=== PATIENT | female | born 1950 | race Caucasian/White ===

== ENCOUNTER 2020-02-01 23:55 | Inpatient (IN) | payer MEDICARE, BC ==
[~2020-02-01] VITALS: Ht 170.2 cm; Wt 80.7 kg
--- NOTE | 2020-02-02 00:10 | NUR ---
Patient brought in by ambulance, via stretcher from [facility]. AO x 3. Verbally responsive, and pleasant at this time. Calm and cooperative. Denies any suicidal/homicidal ideation. Complains of 7/10 pain on the lower back area. Does not complain of any other discomfort. Ambulatory with steady gait, able to walk to the bathroom and back. No issues with GI/. Appears to be continent to bladder at this time. Safety precautions in place, all belongings accounted for and placed in a bag. No contrabands at bedside. VS stable at this time. Side rails up x 2. Nursing vineyard supervisor notified that 1:1 is needed. Patient is on a 5150 hold for DTO. Kept monitored.
[2020-02-02] MEDS ORDERED: HYDROCODONE/APAP 10-325 MG TABLET PO ONE (00:15)
[2020-02-02] MEDS ORDERED: HYDROCODONE/APAP 10-325 MG TABLET ONE (00:16)
[2020-02-02 01:20] VITALS: BP 147/65
--- NOTE | 2020-02-02 01:20 | NUR ---
Pt. admitted to [facility], Room 329, under care of Dr. Payne/Triny PETIT Belongings list completed. Report Given to Lacy LYNCH. Transported patient via wheelchair in stable condition. Safety precautions maintained.
[2020-02-02 01:45] VITALS: BP 147/65
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
--- NOTE | 2020-02-02 06:30 | NUR ---
Patient slept comfortably after admission with 1:1 sitter at bedside, with no complaints of pain or discomfort. All nursing needs were met promptly and patient is warm, dry, and comfortable. All safety and fall precaution measures remain in place.
[2020-02-02 07:43] VITALS: BP 126/48
[2020-02-02] MEDS: QUETIAPINE FUMARATE 25 MG TABLET PO SCH ×2 (09:58→16:06)
[2020-02-02] MEDS: DULOXETINE 60 MG CAPSULE.DR PO SCH (09:58)
[2020-02-02] MEDS ORDERED: MAGNESIUM HYDROXIDE 30 ML LIQUID UDC PO PRN (11:45)
[2020-02-02] MEDS ORDERED: ONDANSETRON 4 MG/2 ML VIAL IV PRN (11:45)
[2020-02-02] MEDS: GABAPENTIN 100 MG CAPSULE PO SCH ×2 (12:20→16:06)
[2020-02-02 13:30] VITALS: BP 134/49
[2020-02-02] MEDS ORDERED: LORAZEPAM 2 MG/1 ML VIAL IM ONE (14:15)
[2020-02-02] MEDS ORDERED: OLANZAPINE 10 MG VIAL IM ONE (14:15)
[2020-02-02 14:20] VITALS: BP 140/79
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
--- NOTE | 2020-02-02 14:47 | NUR ---
Mental Health Social Work Note Patient was given her advisement regarding her 5150 with expiration time. She got extremely upset and agitated when her necklace was removed and does not understand safety precautions to prevent self-injury. She appears to have cognitive impairment and mood instability. Patient began screaming and crying and was inconsolable and not directable. Dr Reyes was called and ordered 5mg Zyprexa IM and Ativan 1 mg. Patient has been living at home. Placement will be evaluated with her who is caring and involved. Patient's mood needs to be stabilized. Dr Reyes will follow patient for her psychiatric stay and evaluate medication and stabilize her mood. Patient is a poor historian and so will be contacted. Anastasiya HERNANDEZ will be doing psychosocial assessment on patient.
[2020-02-02 15:34] LABS: *BILIRUBIN,URIN NEGATIVE (NEGATIVE); *BLOOD, URINE NEGATIVE (NEGATIVE); *CLARITY,URINE SLIGHTLY CLOUDY (CLEAR); *COLOR,URINE YELLOW (YELLOW); *KETONES,URINE NEGATIVE (NEGATIVE); *UROBILINOGEN,URINE 0.2 E.U./dl (NORMAL); LEUKOCYTE ESTERASE ,URINE 1+ (NEGATIVE); NITRITE, URINE NEGATIVE (NEGATIVE); UGLUCOSE NEGATIVE (NEGATIVE)
[2020-02-02 15:41] LABS: BACTERIA,URINE MODERATE /HPF (NONE SEEN); SQUAMOUS EPITHELIAL CELL,UR MANY /HPF (NONE SEEN)
--- NOTE | 2020-02-02 16:11 | NUR ---
11:50am: SW completed patient's psychosocial assessment by meeting with the patient to gather some information, and also speaking with patient's David and gathering additional information from him. SW also obtained a copy of patient's Health Care Directive and placed it in patient's chart.
[2020-02-02] MEDS ORDERED: GABAPENTIN 100 MG CAPSULE PO SCH (17:00)
[2020-02-02 19:58] VITALS: BP 134/67
[2020-02-02] MEDS: DOCUSATE SODIUM 100 MG CAPSULE PO SCH (20:20)
[2020-02-02] MEDS: ATORVASTATIN 40 MG TABLET PO SCH (20:33)
[2020-02-02] MEDS: HYDROCODONE/APAP 10-325 MG TABLET PO PRN (20:37)
[2020-02-02] MEDS ORDERED: DONEPEZIL 10 MG TABLET PO SCH (21:00)
[2020-02-02] MEDS: QUETIAPINE FUMARATE 100 MG TABLET PO SCH (21:03)
[2020-02-03 06:29] LABS: BASOPHILS % (AUTO) 0.5 % (0.0-2.0); EOSINOPHILS # (AUTO) 0.1 K/uL (0.0-0.7); EOSINOPHILS % (AUTO) 1.6 % (0.0-7.0); HEMATOCRIT 36.7 % (31.2-41.9); HEMOGLOBIN 12.3 g/dL (10.9-14.3); LYMPHOCYTES # (AUTO) 2.1 K/uL (20.0-40.0); LYMPHOCYTES % (AUTO) 39.8 % (20.5-51.5); MEAN CORPUSCULAR HEMOGLOBIN 31.9 uug (24.7-32.8); MEAN CORPUSCULAR HGB CONC 34 g/dL (32.3-35.6); MONOCYTES # (AUTO) 0.4 K/uL (2.0-10.0); NEUTROPHILS # (AUTO) 2.7 K/uL (1.8-8.9); NEUTROPHILS % (AUTO) 51.1 % (38.5-71.5); PLATELET COUNT (AUTO) 215 K/uL (179-408); RED BLOOD CELL COUNT(AUTO) 3.87 MIL/uL (3.63-4.92); WHITE BLOOD COUNT (AUTO) 5.4 K/uL (3.8-11.8)
--- NOTE | 2020-02-03 06:45 | NUR ---
slept 9 hours.
[2020-02-03 06:54] LABS: BILIRUBIN,DIRECT 0.1 mg/dL (0.0-0.2); BILIRUBIN,TOTAL 0.3 mg/dL (0.2-1.0); CREATININE 0.8 mg/dL (0.6-1.3); MAGNESIUM 1.9 mg/dL (1.8-2.4); PHOSPHOROUS 3.9 mg/dL (2.5-4.9); POTASSIUM 3.7 mmol/L (3.5-5.1); TOTAL PROTEIN, SERUM 6.1 g/dL (6.4-8.2)
[2020-02-03 06:55] LABS: THYROID STIMULATING HORMONE 1.311 mIU/mL (0.358-3.740)
[2020-02-03 07:30] VITALS: BP 144/50
[2020-02-03] MEDS: DONEPEZIL 10 MG TABLET PO SCH (08:23)
[2020-02-03] MEDS: LORAZEPAM 1 MG TABLET PO PRN ×3 (08:23→20:47)
[2020-02-03] MEDS: GABAPENTIN 100 MG CAPSULE PO SCH ×3 (08:23→16:52)
[2020-02-03] MEDS: CHOLECALCIFEROL 1,000 UNIT TABLET PO SCH (08:23)
[2020-02-03] MEDS: QUETIAPINE FUMARATE 25 MG TABLET PO SCH ×2 (08:23→16:53)
[2020-02-03] MEDS: DULOXETINE 60 MG CAPSULE.DR PO SCH (08:24)
[2020-02-03] MEDS: ASPIRIN 81 MG TAB.CHEW PO SCH (08:24)
[2020-02-03] MEDS: NIFEdipine XL 90 MG TABSR PO SCH (08:24)
[2020-02-03] MEDS: SPIRONOLACTONE 25 MG TABLET PO SCH (08:24)
[2020-02-03] MEDS ORDERED: NIFEDIPINE 90 MG PO SCH (09:00)
[2020-02-03] MEDS: CEphaleXIN 500 MG CAPSULE PO SCH ×3 (09:04→21:01)
[2020-02-03] MEDS: HYDROXYZINE PAMOATE 25 MG CAPSULE PO PRN ×3 (09:05→21:47)
[2020-02-03] MEDS: HYDROCODONE/APAP 10-325 MG TABLET PO PRN ×3 (09:05→21:47)
[2020-02-03 10:00] VITALS: BP 124/32
--- NOTE | 2020-02-03 10:59 | NUR ---
Received patient thrashing around in bed yelling and crying about being in pain. Medications given per order with little relief. Patient very difficult to distract or redirect. Multiple times , patient jumped out of bed and tried to leave the unit yelling " I want to go home". Continuing to reorient patient to situation and medicate for pain and anxiety. Patient walked around unit with assistance and was showered. Tolerated well. Monitoring closely for safety and AWOL risk.
--- NOTE | 2020-02-03 15:47 | NUR ---
Patient continues to c/o pain, but is much calmer. No longer yelling or trying to leave the unit. Patient was able to have a calm conversation on the phone with her . No behavior escalation at this time, and patient can hold a meaningful conversation with staff. Will continue to monitor for safety and monitoring for pain.
[2020-02-03] MEDS: DOCUSATE SODIUM 100 MG CAPSULE PO SCH (21:00)
[2020-02-03] MEDS: QUETIAPINE FUMARATE 100 MG TABLET PO SCH (21:01)
[2020-02-03] MEDS: ATORVASTATIN 40 MG TABLET PO SCH (21:01)
[2020-02-04] MEDS: ONDANSETRON ODT 4 MG TAB.RAPDIS SL PRN ×2 (00:29→19:27)
[2020-02-04] MEDS: ACETAMINOPHEN 325 MG TABLET PO PRN (01:29)
[2020-02-04] MEDS: CEphaleXIN 500 MG CAPSULE PO SCH ×4 (06:02→21:19)
--- NOTE | 2020-02-04 06:50 | NUR ---
Received Pt with up in bed yelling, screaming and crying over how much pain she was in. 08/03 chronic generalized pain controlled with Hominy 10/325 and Tylenol 650mg prn. Pt was given Ativan and later Vistaril 25mg to control her anxiety and lability. Pt is angry, irritable, and needy with narcotics, despite explanation given regarding medication safety and prescribed frequency and timing. Pt is manipulative and child-like, attempts to staff split. Pt remained upset and crying until she fell asleep. Verbally abusive and paranoid toward staff. Woke up intermittently yelling and crying, then went back to sleep. Zofran 4mg administered effectively for nausea. VS stable, will continue to monitor. 1:1 sitter remains presents at all times for safety.
--- NOTE | 2020-02-04 06:59 | NUR ---
Slept 4.30 hours.
[2020-02-04 07:30] VITALS: BP 97/50
[2020-02-04] MEDS: GABAPENTIN 100 MG CAPSULE PO SCH ×5 (08:22→17:21)
[2020-02-04] MEDS: DULOXETINE 60 MG CAPSULE.DR PO SCH (08:22)
[2020-02-04] MEDS: ASPIRIN 81 MG TAB.CHEW PO SCH (08:22)
[2020-02-04] MEDS: CHOLECALCIFEROL 1,000 UNIT TABLET PO SCH (08:22)
[2020-02-04] MEDS: DONEPEZIL 10 MG TABLET PO SCH (08:22)
[2020-02-04] MEDS: SPIRONOLACTONE 25 MG TABLET PO SCH (08:22)
[2020-02-04] MEDS: NIFEdipine XL 90 MG TABSR PO SCH (08:22)
[2020-02-04] MEDS: LORAZEPAM 1 MG TABLET PO PRN ×2 (08:23→19:27)
[2020-02-04] MEDS: QUETIAPINE FUMARATE 25 MG TABLET PO SCH ×3 (08:23→17:20)
--- NOTE | 2020-02-04 08:45 | NUR ---
GPS: RECEIVED PATIENT AOX1, CONFUSED, AND CRYING, PATIENT VEBALIZES THAT SHES IN PAIN, PATIENT SCREAMING AND SHOUTING, NEEDED REDIRECTION , PRN MEDICATION GIVEN, PATIENT TOOK MEDS, PATIENT STILL VERBALIZES PAIN EVEN WITH PAIN MEDICATION, WILL CONTINUE MONITOR,
[2020-02-04] MEDS ORDERED: LORAZEPAM 2 MG/1 ML VIAL IM ONE (09:15)
[2020-02-04] MEDS ORDERED: OLANZAPINE 10 MG VIAL IM ONE (09:15)
--- NOTE | 2020-02-04 09:27 | NUR ---
GPS: PATIENT CONTINUOUSLY SCREAMING, AND SHOUTING IN HER ROOM, UNABLE TO REDIRECT, CONFUSED AND VERY ANXIOUS , CALLED AND SPOKE WITH DR. ROMAN, SUDHA MEDICATION ORDERED VIA IM , MEDS GIVEN , PATIENT TOLERATED THE MEDICATION, WILL CONTINUE MONITOR
--- NOTE | 2020-02-04 13:56 | NUR ---
PATIENT ASLEEP IN HER ROOM, WITH 1:1 SITTER FOR SAFETY
[2020-02-04] MEDS: HYDROCODONE/APAP 10-325 MG TABLET PO PRN (19:28)
[2020-02-04] MEDS: DOCUSATE SODIUM 100 MG CAPSULE PO SCH (21:00)
[2020-02-04 21:01] VITALS: BP 128/53
[2020-02-04] MEDS: ATORVASTATIN 40 MG TABLET PO SCH (21:20)
[2020-02-04] MEDS: QUETIAPINE FUMARATE 100 MG TABLET PO SCH (21:20)
[2020-02-05] MEDS: ONDANSETRON ODT 4 MG TAB.RAPDIS SL PRN ×2 (01:27→22:42)
[2020-02-05] MEDS: LORAZEPAM 1 MG TABLET PO PRN ×2 (01:27→08:14)
[2020-02-05] MEDS: HYDROCODONE/APAP 10-325 MG TABLET PO PRN ×4 (01:43→22:43)
[2020-02-05] MEDS: CEphaleXIN 500 MG CAPSULE PO SCH ×3 (06:19→22:43)
--- NOTE | 2020-02-05 06:20 | NUR ---
Remains the same as previous shift-when awake, Pt screams, yells, and cries inconsolably. Pt had minor moments of calm, but when redirection was given, Pt resumes crying and screaming "Pain!" Pt is alert and oriented x2 with moments of forgetfulness. Remains needy and seeking of narcotic medications. [place] 10/325, Ativan 1mg, and Zofran 4mg administered x2 during the shift. VS stable, slept 7.5 hours.
--- NOTE | 2020-02-05 07:35 | NUR ---
GPS: received patient asleep om bed with 1:1 sitter by the bed side, VS stable denies pain at this time
[2020-02-05] MEDS: CHOLECALCIFEROL 1,000 UNIT TABLET PO SCH (08:13)
[2020-02-05] MEDS: DULOXETINE 60 MG CAPSULE.DR PO SCH (08:13)
[2020-02-05] MEDS: QUETIAPINE FUMARATE 25 MG TABLET PO SCH ×2 (08:13→17:34)
[2020-02-05] MEDS: SPIRONOLACTONE 25 MG TABLET PO SCH (08:13)
[2020-02-05] MEDS: ASPIRIN 81 MG TAB.CHEW PO SCH (08:14)
[2020-02-05] MEDS: GABAPENTIN 100 MG CAPSULE PO SCH ×3 (08:14→17:34)
[2020-02-05] MEDS: DONEPEZIL 10 MG TABLET PO SCH (08:19)
[2020-02-05] MEDS: NIFEdipine XL 90 MG TABSR PO SCH (08:48)
--- NOTE | 2020-02-05 08:58 | NUR ---
GPS: patient continuously crying and screaming, patient verbalizes pain, patient restless , anxious, , has a childlike behavior, patient still has 1:1 sitter for safety, redirect patient attention with other activity the patient refused, assisted to lay down in bed , prn meds for pain given as ordered, will continue monitor
[2020-02-05 09:32] VITALS: BP 115/58
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
[2020-02-05] MEDS ORDERED: OLANZAPINE 10 MG VIAL IM ONE (09:45)
[2020-02-05] MEDS ORDERED: LORAZEPAM 2 MG/1 ML VIAL IM ONE (09:45)
[2020-02-05] MEDS: HYDROXYZINE PAMOATE 25 MG CAPSULE PO PRN ×2 (12:33→20:21)
--- NOTE | 2020-02-05 14:37 | NUR ---
Social Work Family Contact: leather production worker contacted patient's David ([phone]) to gather more collateral. 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 David, provided more information to this remote mortgage underwriter such as primary doctor number ([phone]) and home health services that patient has recently started on ([phone]).
--- NOTE | 2020-02-05 14:39 | NUR ---
Social Work Initial Discharge Plan: Patient will return back home with patient's David ([phone]) who is the DPOA. Patient will return back home with home health services.
--- NOTE | 2020-02-05 14:40 | NUR ---
Social Work Individual Therapy: floor worker well service met with patient to provided individual therapy. Patient presents with labile mood. This designer writer was unable to have a meaningful conversation with the patient. Patient has been continuously crying and stated to this designer writer "to leave" and that she wants to go to her room. This designer writer will follow-up with patient.
--- NOTE | 2020-02-05 14:46 | NUR ---
Social Work Firearms Report: Egg Smeller completed and submitted a [employer] firearms report for 5250 grave disability certification. A copy of report has been placed in patient chart.
[2020-02-05 20:00] VITALS: BP 146/63
[2020-02-05] MEDS: QUETIAPINE FUMARATE 100 MG TABLET PO SCH (20:21)
[2020-02-05] MEDS: DOCUSATE SODIUM 100 MG CAPSULE PO SCH (20:21)
[2020-02-05] MEDS: ATORVASTATIN 40 MG TABLET PO SCH (20:22)
[2020-02-05] MEDS: ACETAMINOPHEN 325 MG TABLET PO PRN (20:22)
[2020-02-05] MEDS ORDERED: LORAZEPAM 1 MG TABLET PO PRN (23:30)
--- NOTE | 2020-02-06 05:51 | NUR ---
Received Pt at the nurse's station, screaming and crying over how much pain she was in. Pt had just been given narcotic pain medication from the previous shift, and was reminded and re-educated regarding safety, timing and frequency of the medication. Pt continued to scream and cry at he nurse's station despite directions to wait in her room for her nurse to address her concerns. Pt became verbally abusive toward this repairer typewriter and was disruptive toward the milieu. Pt was escorted back to her room by staff, and Pt became aggressive and combative, attempting to strike out. Pt yanked herself away and ran to her room, throwing herself on her bed and sliding to the floor, kicking and screaming, refusing to get off of the floor. Redirection and emotional support provided, but Pt still refused, stating she would not get up "until I get more medication." Pt becomes manipulative and gamey when limits are set. Pt became accusatory and threatening toward staff stating, "I'm going to sylvie you for breaking my back, you broke my back!" Pt was given Vistaril 25mg to control her anxiety and lability. [place] 10/325 administered for pain, but Pt continued to act out and and scream for more pain medication. MD wan,pain management consult ordered. Pt is angry, irritable, needy and seeking with narcotics, despite repeated explanations given regarding medication safety. Pt remained upset and crying until she fell asleep. Woke up intermittently yelling, then went back to sleep throughout the shift. VS stable.
[2020-02-06] MEDS: CEphaleXIN 500 MG CAPSULE PO SCH ×3 (06:38→22:00)
[2020-02-06 07:30] VITALS: BP 110/49
[2020-02-06] MEDS: GABAPENTIN 100 MG CAPSULE PO SCH ×3 (08:00→17:32)
[2020-02-06] MEDS: ASPIRIN 81 MG TAB.CHEW PO SCH (08:00)
[2020-02-06] MEDS: QUETIAPINE FUMARATE 25 MG TABLET PO SCH ×2 (08:00→17:32)
[2020-02-06] MEDS: CHOLECALCIFEROL 1,000 UNIT TABLET PO SCH (08:00)
[2020-02-06] MEDS: DONEPEZIL 10 MG TABLET PO SCH (08:00)
[2020-02-06] MEDS: SPIRONOLACTONE 25 MG TABLET PO SCH (08:03)
[2020-02-06] MEDS: NIFEdipine XL 90 MG TABSR PO SCH (08:03)
[2020-02-06] MEDS: DULOXETINE 60 MG CAPSULE.DR PO SCH (08:03)
[2020-02-06] MEDS: HYDROCODONE/APAP 10-325 MG TABLET PO PRN (08:42)
[2020-02-06] MEDS: ACETAMINOPHEN 325 MG TABLET PO PRN (11:51)
[2020-02-06] MEDS: HYDROXYZINE PAMOATE 25 MG CAPSULE PO PRN (11:51)
[2020-02-06] MEDS ORDERED: HALOPERIDOL LACTATE 5 MG/1 ML VIAL IM STA (13:12)
[2020-02-06] MEDS ORDERED: LORAZEPAM 2 MG/1 ML VIAL IM STA (13:12)
--- NOTE | 2020-02-06 13:47 | NUR ---
patient constantly yelling, screaming, and kicking stuff, redirected not effective, called dr escobar, with order to give patient Ativan and Haldol as ordered, administered, continue to monitor behavior
--- NOTE | 2020-02-06 15:25 | NUR ---
Social Work PC Hearing Notification: breast worker contacted patient's David, ([phone]) and notified patients probable cause of hearing today.
[2020-02-06 16:00] VITALS: BP 108/51
--- NOTE | 2020-02-06 18:19 | NUR ---
patient is resting in her bed, calm, comfortable, no distress noted
[2020-02-06 20:00] VITALS: BP 100/60
[2020-02-06] MEDS: DOCUSATE SODIUM 100 MG CAPSULE PO SCH (21:00)
[2020-02-06] MEDS: QUETIAPINE FUMARATE 100 MG TABLET PO SCH (21:00)
[2020-02-06] MEDS: ATORVASTATIN 40 MG TABLET PO SCH (21:00)
--- NOTE | 2020-02-06 23:00 | NUR ---
received to care, lying in bed, asleep, but easy to awaken. compliant with vital signs, but refused all medications, and would not talk to the psychiatrist, stating "leave me alone i want to sleep." as of 2299, she continues to sleep. no distress noted. will continue to monitor closely.
[2020-02-07] MEDS: CEphaleXIN 500 MG CAPSULE PO SCH ×4 (05:36→23:00)
[2020-02-07] MEDS: HYDROCODONE/APAP 10-325 MG TABLET PO PRN ×2 (05:39→11:50)
--- NOTE | 2020-02-07 06:00 | NUR ---
slept 9.75 hours. PRN norco was given at 0540 for 10/10 gen pain. remains asleep.
--- NOTE | 2020-02-07 07:15 | NUR ---
pt is nowe awake, yelling and screaming, that she is in severe pain. difficult to redirect. currently in room, talking to self. report given to oncoming shift.
[2020-02-07 08:00] VITALS: BP 147/54
[2020-02-07] MEDS: DULOXETINE 60 MG CAPSULE.DR PO SCH (08:04)
[2020-02-07] MEDS: GABAPENTIN 100 MG CAPSULE PO SCH ×3 (08:04→18:05)
[2020-02-07] MEDS: QUETIAPINE FUMARATE 25 MG TABLET PO SCH ×2 (08:04→16:39)
[2020-02-07] MEDS: DONEPEZIL 10 MG TABLET PO SCH (08:05)
[2020-02-07] MEDS: NIFEdipine XL 90 MG TABSR PO SCH (08:05)
[2020-02-07] MEDS: SPIRONOLACTONE 25 MG TABLET PO SCH (08:05)
[2020-02-07] MEDS: ASPIRIN 81 MG TAB.CHEW PO SCH (08:05)
[2020-02-07] MEDS: CHOLECALCIFEROL 1,000 UNIT TABLET PO SCH (08:05)
[2020-02-07] MEDS ORDERED: LORAZEPAM 2 MG/1 ML VIAL IM ONE (12:15)
[2020-02-07] MEDS ORDERED: HALOPERIDOL LACTATE 5 MG/1 ML VIAL IM ONE (12:15)
[2020-02-07 16:00] VITALS: BP 105/37
[2020-02-07 20:46] VITALS: BP 122/51
[2020-02-07] MEDS: ATORVASTATIN 40 MG TABLET PO SCH ×2 (21:00→23:00)
[2020-02-07] MEDS: QUETIAPINE FUMARATE 100 MG TABLET PO SCH ×2 (21:00→23:00)
[2020-02-07] MEDS: DOCUSATE SODIUM 100 MG CAPSULE PO SCH (21:00)
--- NOTE | 2020-02-07 22:00 | NUR ---
received to care, asleep. no distress noted. meds were held, for now. will continue to monitor closely.
--- NOTE | 2020-02-07 23:30 | NUR ---
pt woke up at 2300, yelling and screaming. bedtime medications were given, at that time. as of now, she appear s to be asleep. no distress noted. will continue to monitor closely.
[2020-02-08] MEDS: CEphaleXIN 500 MG CAPSULE PO SCH ×3 (06:24→21:18)
[2020-02-08] MEDS: HYDROCODONE/APAP 10-325 MG TABLET PO PRN ×2 (06:25→13:02)
--- NOTE | 2020-02-08 06:30 | NUR ---
slept 9.25 hours, total. continues to sleep. no distress noted.
[2020-02-08 07:30] VITALS: BP 155/68
[2020-02-08] MEDS: FLUVOXAMINE MALEATE 25 MG TABLET PO SCH ×3 (08:01→17:18)
[2020-02-08] MEDS: NIFEdipine XL 90 MG TABSR PO SCH (08:01)
[2020-02-08] MEDS: HYDROXYZINE PAMOATE 25 MG CAPSULE PO PRN ×2 (08:01→19:51)
[2020-02-08] MEDS: CHOLECALCIFEROL 1,000 UNIT TABLET PO SCH (08:01)
[2020-02-08] MEDS: QUETIAPINE FUMARATE 100 MG TABLET PO SCH ×3 (08:01→20:57)
[2020-02-08] MEDS: SPIRONOLACTONE 25 MG TABLET PO SCH (08:02)
[2020-02-08] MEDS: GABAPENTIN 100 MG CAPSULE PO SCH ×3 (08:02→17:18)
[2020-02-08] MEDS: DULOXETINE 60 MG CAPSULE.DR PO SCH (08:02)
[2020-02-08] MEDS: ASPIRIN 81 MG TAB.CHEW PO SCH (08:02)
[2020-02-08] MEDS: DONEPEZIL 10 MG TABLET PO SCH (08:02)
--- NOTE | 2020-02-08 12:25 | NUR ---
Patient woke up this am yelling, screaming and walking up and down the onofre c/o 'pain". Very difficult to calm down and patient acting irrational. Am medications given and patient continues to yell out off and on, jumping out of bed and barging out to the nurses station. Assisted to shower and continuing to medicate per order. Patient has mood swings and can be combative. Monitoring for safety of patient and staff. Also monitoring for behavior escalation.
[2020-02-08 16:16] VITALS: BP 105/52
[2020-02-08] MEDS: ONDANSETRON ODT 4 MG TAB.RAPDIS SL PRN (17:01)
--- NOTE | 2020-02-08 19:51 | NUR ---
RECEIVED PT AWAKE, ALERT AND ORIENTEDX3. PT IN NO ACUTE DISTRESS. PLEASANT WHEN APPROACHED. PT SHOWS AGITATION, CRYING AND RESTLESS. STATING SHE'S IN PAIN. GAVE VISTARIL 1950H. PT TOLERATED IT WELL. WILL CONTINUE TO MONITOR.
[2020-02-08 20:30] VITALS: BP 126/95
[2020-02-08] MEDS: DOCUSATE SODIUM 100 MG CAPSULE PO SCH (20:55)
[2020-02-08] MEDS: ATORVASTATIN 40 MG TABLET PO SCH (20:56)
[2020-02-09] MEDS: HYDROCODONE/APAP 10-325 MG TABLET PO PRN ×4 (02:44→23:30)
[2020-02-09] MEDS: CEphaleXIN 500 MG CAPSULE PO SCH ×3 (05:59→21:25)
[2020-02-09] MEDS: ACETAMINOPHEN 325 MG TABLET PO PRN ×3 (06:22→20:55)
--- NOTE | 2020-02-09 06:36 | NUR ---
PT SLEPT 8 H. PT COOPERATIVE WITH CARE. PRESCRIBED MEDICATION GIVEN AND PT TOLERATED IT WELL. AT 0244H PT GIVEN NORCO BECAUSE OF 9/10 CHRONIC PAIN. PT TOLERATED IT WELL.AT 0622H PT GIVEN TYLENOL FOR CHRONIC PAIN. PT TOLERATED IT WELL. PT REDIRECTABLE. SAFETY AND COMFORT PROVIDED. WILL ENDORSE TO INCOMING NURSE FOR CONTINUITY OF CARE.
[2020-02-09 07:56] VITALS: BP 114/50
[2020-02-09] MEDS: DULOXETINE 60 MG CAPSULE.DR PO SCH (08:21)
[2020-02-09] MEDS: DONEPEZIL 10 MG TABLET PO SCH (08:21)
[2020-02-09] MEDS: NIFEdipine XL 90 MG TABSR PO SCH (08:21)
[2020-02-09] MEDS: SPIRONOLACTONE 25 MG TABLET PO SCH (08:21)
[2020-02-09] MEDS: FLUVOXAMINE MALEATE 25 MG TABLET PO SCH ×3 (08:21→17:24)
[2020-02-09] MEDS: ASPIRIN 81 MG TAB.CHEW PO SCH (08:21)
[2020-02-09] MEDS: CHOLECALCIFEROL 1,000 UNIT TABLET PO SCH (08:22)
[2020-02-09] MEDS: GABAPENTIN 100 MG CAPSULE PO SCH ×3 (08:22→17:24)
[2020-02-09] MEDS: QUETIAPINE FUMARATE 100 MG TABLET PO SCH ×3 (08:22→20:12)
--- NOTE | 2020-02-09 10:39 | NUR ---
Social Work Individual Therapy: out of school hours care worker met with patient to provided individual therapy. Patient presents with labile mood. This administrative underwriter was unable to have a meaningful conversation with the patient. Patient has been continuously crying and stated to this administrative underwriter "to leave". Patient continues to yell and scream "pain, pain". This administrative underwriter was unable to conversate with the patient.
--- NOTE | 2020-02-09 10:50 | NUR ---
Received patient this am , yelling, screaming and crying. Out of control. C/O " Pain". Medicated per orders. Patient difficult to redirect. Came to nursing station, yelling and demanding to speak with her . Patient became combative and made fits at the nurse and proceeded to lay down on the floor and was totally unreasonable. After a few minutes , patient got up and went to bed and is now sleeping. Monitoring patient for pain, safety and escalations in behavior. No acute distress noted at this time. MD is aware of the episode. Frequent rounding being done to ensure patient safety.
[2020-02-09] MEDS: HYDROXYZINE PAMOATE 25 MG CAPSULE PO PRN ×2 (14:10→20:13)
--- NOTE | 2020-02-09 14:36 | NUR ---
Social Work Family Contact: aircraft worker received a phone call from patient's David ([phone]) and wanted to know how the patient has been doing. This scientific writer discussed treatment plan and discharge plan with the David.
[2020-02-09 17:31] VITALS: BP 130/59
[2020-02-09] MEDS: DOCUSATE SODIUM 100 MG CAPSULE PO SCH (20:12)
[2020-02-09] MEDS: ATORVASTATIN 40 MG TABLET PO SCH (20:12)
[2020-02-09 20:19] VITALS: BP 136/55
[2020-02-10] MEDS: CEphaleXIN 500 MG CAPSULE PO SCH ×2 (05:59→12:52)
--- NOTE | 2020-02-10 06:21 | NUR ---
Patient slept about a total of 4.30 hours last night.
[2020-02-10] MEDS: HYDROXYZINE PAMOATE 25 MG CAPSULE PO PRN ×2 (06:29→13:34)
[2020-02-10] MEDS: HYDROCODONE/APAP 10-325 MG TABLET PO PRN ×2 (06:29→13:35)
[2020-02-10 07:30] VITALS: BP 155/54
[2020-02-10] MEDS ORDERED: LORAZEPAM 2 MG/1 ML VIAL IM ONE ×2 (07:30→14:30)
[2020-02-10] MEDS ORDERED: HALOPERIDOL LACTATE 5 MG/1 ML VIAL IM ONE (07:30)
[2020-02-10] MEDS: GABAPENTIN 100 MG CAPSULE PO SCH ×3 (08:21→17:00)
[2020-02-10] MEDS: ASPIRIN 81 MG TAB.CHEW PO SCH (08:21)
[2020-02-10] MEDS: QUETIAPINE FUMARATE 100 MG TABLET PO SCH ×3 (08:21→21:00)
[2020-02-10] MEDS: FLUVOXAMINE MALEATE 50 MG TABLET PO SCH ×3 (08:21→17:00)
[2020-02-10] MEDS: CHOLECALCIFEROL 1,000 UNIT TABLET PO SCH (08:21)
[2020-02-10] MEDS: DONEPEZIL 10 MG TABLET PO SCH (08:21)
[2020-02-10] MEDS: SPIRONOLACTONE 25 MG TABLET PO SCH (08:22)
[2020-02-10] MEDS: DULOXETINE 60 MG CAPSULE.DR PO SCH (08:22)
[2020-02-10] MEDS: NIFEdipine XL 90 MG TABSR PO SCH (08:22)
[2020-02-10] MEDS ORDERED: DULOXETINE 30 MG CAPSULE.DR PO SCH (09:00)
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
[2020-02-10] MEDS ORDERED: chlorproMAZINE 50 MG/2 ML AMPUL IM ONE (14:30)
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
[2020-02-10 20:33] VITALS: BP 150/56
[2020-02-10] MEDS: ATORVASTATIN 40 MG TABLET PO SCH (21:00)
[2020-02-10] MEDS: DOCUSATE SODIUM 100 MG CAPSULE PO SCH (21:00)
[2020-02-11] MEDS: HYDROXYZINE PAMOATE 25 MG CAPSULE PO PRN ×2 (05:51→19:04)
[2020-02-11] MEDS: HYDROCODONE/APAP 10-325 MG TABLET PO PRN ×2 (05:52→19:04)
[2020-02-11] MEDS ORDERED: chlorproMAZINE 25 MG TABLET PO SCH (09:00)
[2020-02-11] MEDS: NIFEdipine XL 90 MG TABSR PO SCH (09:00)
[2020-02-11] MEDS: SPIRONOLACTONE 25 MG TABLET PO SCH (09:10)
[2020-02-11] MEDS: DONEPEZIL 10 MG TABLET PO SCH (09:11)
[2020-02-11] MEDS: GABAPENTIN 100 MG CAPSULE PO SCH ×3 (09:12→17:00)
[2020-02-11] MEDS: ASPIRIN 81 MG TAB.CHEW PO SCH (09:12)
[2020-02-11] MEDS: FLUVOXAMINE MALEATE 50 MG TABLET PO SCH ×3 (09:12→17:00)
[2020-02-11] MEDS: CHOLECALCIFEROL 1,000 UNIT TABLET PO SCH (09:12)
[2020-02-11] MEDS: chlorproMAZINE 25 MG TABLET PO SCH ×3 (09:18→17:00)
[2020-02-11] MEDS ORDERED: chlorproMAZINE 50 MG/2 ML AMPUL IM ONE (11:30)
[2020-02-11] MEDS ORDERED: LORAZEPAM 2 MG/1 ML VIAL IM ONE (11:30)
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
--- NOTE | 2020-02-11 12:00 | NUR ---
Pt. calm now and is sleeping. Awakens easily to verbal stim. V/S stable. Resp. even and unlabored.
[2020-02-11 15:52] VITALS: BP_SYST 144; BP_SYST 98; BP_DIAS 46; BP_DIAS 50
--- NOTE | 2020-02-11 19:30 | NUR ---
RECEIVED PATIENT IN HER ROOM IN BED. SHE IS NOTED CRYING AND YELLING. SHE STATED "IT HURTS, IT HURTS" PATIENT WAS GIVEN NORCO AND VISTARIL AT APPROX 1915. PATIENT WAS REASSURED AND REDIRECTED. SHE IS NOTED HARD TO REDIRECT, MOOD IS IRRITABLE, AFFECT IS APATHETIC. PATIENT IS REASSURED FOR HIS SAFETY. SAFETY AND FALL PRECAUTION IN PLACE. WILL CONTINUE TO MONITOR.
--- NOTE | 2020-02-11 20:30 | NUR ---
PATIENT NOTED CALM AT THIS TIME. RESTING IN HER BED. V/S STABLE. SAFETY AND FALL PRECAUTION IN PLACE. WILL CONTINUE TO MONITOR.
[2020-02-11] MEDS: ATORVASTATIN 40 MG TABLET PO SCH (21:00)
[2020-02-11] MEDS: DOCUSATE SODIUM 100 MG CAPSULE PO SCH (21:00)
[2020-02-11 22:30] VITALS: BP 120/50
[2020-02-12 07:30] VITALS: BP 97/59
[2020-02-12] MEDS: FLUVOXAMINE MALEATE 50 MG TABLET PO SCH ×3 (08:41→17:12)
[2020-02-12] MEDS: DONEPEZIL 10 MG TABLET PO SCH (08:41)
[2020-02-12] MEDS: ASPIRIN 81 MG TAB.CHEW PO SCH (08:41)
[2020-02-12] MEDS: CHOLECALCIFEROL 1,000 UNIT TABLET PO SCH (08:41)
[2020-02-12] MEDS: chlorproMAZINE 25 MG TABLET PO SCH ×3 (08:42→17:12)
[2020-02-12] MEDS: SPIRONOLACTONE 25 MG TABLET PO SCH (08:43)
[2020-02-12] MEDS: NIFEdipine XL 90 MG TABSR PO SCH (08:45)
[2020-02-12] MEDS: GABAPENTIN 100 MG CAPSULE PO SCH ×3 (08:48→17:12)
[2020-02-12] MEDS: HYDROCODONE/APAP 10-325 MG TABLET PO PRN ×2 (08:53→18:39)
--- NOTE | 2020-02-12 09:00 | NUR ---
PATIENT IS SITTING UP ON THE CHAIR IN HER ROOM EATING BREAKFAST AND SUDDENLY STARTED SCREAMING THAT SHE IS IN PAIN WAS MEDICATED WITH NORCO ORDERED PATIENT ASSISTED BACK INTO BED MADE COMFORTABLE.
[2020-02-12] MEDS: HYDROXYZINE PAMOATE 25 MG CAPSULE PO PRN ×2 (09:17→18:39)
--- NOTE | 2020-02-12 09:20 | NUR ---
VERY IRRITABLE SCREAMING AT THE TOP OF HER VOICE VERY ANXIOUS UNABLE TO REDIRECT VISTARIL GIVEN FOR ANXIETY AT THIS TIME ORDERED WILL CONTINUE TO OBSERVE AND PROVIDE SAFE AND THERAPEUTIC ENVIRONMENT.
--- NOTE | 2020-02-12 09:23 | NUR ---
SCREAMING AND YELLING IS WORSE UNABLE TO REDIRECT CALLED AND SPOKE WITH DR BERRY AND HE STATED THAT HE IS NOT INFORMATION LEAD AND DOES NOT KNOW THE PATIENT STATED THAT HE IS OFF UNTIL NEXT WEEK AND DR AGUERO IS INFORMATION LEAD FOR HIM SO I CALLED DR AGUERO AND LEFT HIM A VOICE MESSAGE.
[2020-02-12] MEDS ORDERED: chlorproMAZINE 50 MG/2 ML AMPUL IM ONE (10:00)
[2020-02-12] MEDS ORDERED: LORAZEPAM 2 MG/1 ML VIAL IM ONE (10:00)
--- NOTE | 2020-02-12 10:09 | NUR ---
PATIENT MEDICATED WITH THORAZINE AND ATIVAN ORDERED MADE COMFORTABLE AND WILL CONTINUE TO OBSERVE.
--- NOTE | 2020-02-12 10:10 | NUR ---
DR AGUERO RETURNED CALL WITH NEW ORDERS AND NOTED
--- NOTE | 2020-02-12 18:40 | NUR ---
CONTINUES TO C/O PAIN WITH AGITATION AND RESTLESSNESS UNABLE TO REDIRECT MEDICATED WITH NORCO AND VISTARIL ORDERED MADE COMFORTABLE AND WILL CONTINUE TO OBSERVE.
[2020-02-12 20:48] VITALS: BP 102/50
[2020-02-12] MEDS: ATORVASTATIN 40 MG TABLET PO SCH ×2 (21:59→22:55)
[2020-02-12] MEDS: DOCUSATE SODIUM 100 MG CAPSULE PO SCH ×2 (21:59→22:55)
[2020-02-12] MEDS: ACETAMINOPHEN 325 MG TABLET PO PRN (22:55)
--- NOTE | 2020-02-12 23:30 | NUR ---
received to care, asleep, no distress noted. bedtime medications were held, initially, but were given at 2254, along with PRN tylenol, for lower back pain. as of 2329, she remains asleep. no distress noted. will continue to monitor closely.
--- NOTE | 2020-02-13 06:00 | NUR ---
slept 8.5 hours, total. continues to sleep. no distress noted.
[2020-02-13 07:30] VITALS: BP 126/49
[2020-02-13] MEDS: DONEPEZIL 10 MG TABLET PO SCH (08:40)
[2020-02-13] MEDS: CHOLECALCIFEROL 1,000 UNIT TABLET PO SCH (08:40)
[2020-02-13] MEDS: ASPIRIN 81 MG TAB.CHEW PO SCH (08:40)
[2020-02-13] MEDS: FLUVOXAMINE MALEATE 50 MG TABLET PO SCH ×3 (08:40→16:06)
[2020-02-13] MEDS: GABAPENTIN 100 MG CAPSULE PO SCH ×3 (08:40→16:06)
[2020-02-13] MEDS: HYDROXYZINE PAMOATE 25 MG CAPSULE PO PRN ×2 (08:49→15:23)
[2020-02-13] MEDS: chlorproMAZINE 25 MG TABLET PO SCH ×5 (08:50→23:30)
[2020-02-13] MEDS: SPIRONOLACTONE 25 MG TABLET PO SCH (08:50)
[2020-02-13] MEDS: HYDROCODONE/APAP 10-325 MG TABLET PO PRN ×2 (08:51→15:24)
[2020-02-13] MEDS: NIFEdipine XL 90 MG TABSR PO SCH (08:51)
--- NOTE | 2020-02-13 08:51 | NUR ---
RECEIVED PATIENT IN BED AWAKE YELLING AT THE TOP OF HER VOICE MEDICATED FOR PAIN AND RESTLESSNESS AT THIS TIME PATIENT MADE COMFORTABLE AND WILL CONTINUE TO OBSERVE.
--- NOTE | 2020-02-13 15:25 | NUR ---
SHE RESTED A LITTLE BIT BUT IS NOW SCREAMING AGAIN UNABLE TO REDIRECT MEDICATED WITH NORCO AND VISTARIL ORDERED MADE COMFORTABLE AND WILL CONTINUE TO OBSERVE.
[2020-02-13 16:12] VITALS: BP 119/50
[2020-02-13] MEDS ORDERED: chlorproMAZINE 25 MG TABLET PO SCH (17:00)
--- NOTE | 2020-02-13 17:15 | NUR ---
DR AGUERO HERE TO SEE PATIENT WITH NEW ORDERS AND NOTED
[2020-02-13 20:00] VITALS: BP 120/58
[2020-02-13] MEDS: ATORVASTATIN 40 MG TABLET PO SCH ×2 (21:59→23:30)
[2020-02-13] MEDS: DOCUSATE SODIUM 100 MG CAPSULE PO SCH ×2 (21:59→23:30)
--- NOTE | 2020-02-14 00:30 | NUR ---
received to care, asleep, no distress noted. bedtime medications were held, initially, but were given at 2330, when she got up, to use the restroom. as of 29, she remains asleep. no distress noted. will continue to monitor closely.
--- NOTE | 2020-02-14 06:00 | NUR ---
slept 9.75 hours, total. continues to sleep. no distress noted.
[2020-02-14 07:30] VITALS: BP 137/57
[2020-02-14] MEDS: CHOLECALCIFEROL 1,000 UNIT TABLET PO SCH (08:36)
[2020-02-14] MEDS: SPIRONOLACTONE 25 MG TABLET PO SCH (08:37)
[2020-02-14] MEDS: DONEPEZIL 10 MG TABLET PO SCH (08:37)
[2020-02-14] MEDS: FLUVOXAMINE MALEATE 50 MG TABLET PO SCH ×3 (08:37→17:25)
[2020-02-14] MEDS: chlorproMAZINE 25 MG TABLET PO SCH ×3 (08:37→20:48)
[2020-02-14] MEDS: ASPIRIN 81 MG TAB.CHEW PO SCH (08:37)
[2020-02-14] MEDS: GABAPENTIN 100 MG CAPSULE PO SCH ×3 (08:37→17:25)
[2020-02-14] MEDS: NIFEdipine XL 90 MG TABSR PO SCH (08:38)
[2020-02-14] MEDS: HYDROCODONE/APAP 10-325 MG TABLET PO PRN ×2 (08:49→11:43)
--- NOTE | 2020-02-14 09:37 | NUR ---
Social Work Individual Therapy: wire worker met with patient to provided individual therapy. Patient presents with labile mood. This specification writer was unable to have a meaningful conversation with the patient. Patient yells "pain, pain" and is uncooperative. This specification writer is unable to have a meaningful conversation. This specification writer encouraged patient to engage in group and to interact with patients. This specification writer actively listened and provided support.
[2020-02-14 20:44] VITALS: BP 139/54
[2020-02-14] MEDS: DOCUSATE SODIUM 100 MG CAPSULE PO SCH (20:48)
[2020-02-14] MEDS: ATORVASTATIN 40 MG TABLET PO SCH (20:48)
--- NOTE | 2020-02-14 23:13 | NUR ---
PATIENT RECEIVED IN BED AWAKE. PATIENT ALERT/ORIENTED X1 WITH CONFUSION NOTED. PATIENT IS EASILY IRRITABLE REQUIRES REDIRECTION. LABILE AT TIMES. PATIENT COMPLAINT WITH MEDICATION. BED IN LOWEST POSITION, BED LOCKED, AND BED ALARM ON WHILE IN BED.
[2020-02-15 07:30] VITALS: BP 124/53
--- NOTE | 2020-02-15 09:51 | NUR ---
Social Work Coordination of Care: woodworker contacted patient's doctor office and spoke with denis who scheduled an appointment for February 28 at 10:45AM. This check writer salesperson contacted [facility] ([phone]) and spoke with Pauline who scheduled for April 11 at 2:20PM. This check writer salesperson also contacted [facility] ([phone]) to resume patients services per Mirian request.
--- NOTE | 2020-02-15 10:01 | NUR ---
Social Work Substance Abuse Intervention: Patient was provided brief substance abuse intervention and was referred to [facility] [place] ([phone]) and was also referred to [facility] ([phone]).
[2020-02-15] MEDS: ASPIRIN 81 MG TAB.CHEW PO SCH (10:20)
[2020-02-15] MEDS: CHOLECALCIFEROL 1,000 UNIT TABLET PO SCH (10:20)
[2020-02-15] MEDS: ACETAMINOPHEN 325 MG TABLET PO PRN (10:20)
[2020-02-15] MEDS: GABAPENTIN 100 MG CAPSULE PO SCH ×3 (10:20→17:00)
[2020-02-15] MEDS: FLUVOXAMINE MALEATE 50 MG TABLET PO SCH ×3 (10:20→17:00)
[2020-02-15] MEDS: chlorproMAZINE 25 MG TABLET PO SCH ×2 (10:20→13:00)
[2020-02-15] MEDS: DONEPEZIL 10 MG TABLET PO SCH (10:20)
[2020-02-15] MEDS: SPIRONOLACTONE 25 MG TABLET PO SCH (10:21)
[2020-02-15] MEDS: NIFEdipine XL 90 MG TABSR PO SCH (10:21)
[2020-02-15 15:18] VITALS: BP 138/52
[2020-02-15] MEDS: ATORVASTATIN 40 MG TABLET PO SCH (20:01)
[2020-02-15] MEDS: DOCUSATE SODIUM 100 MG CAPSULE PO SCH (20:01)
[2020-02-15 20:20] VITALS: BP 135/60
[2020-02-15] MEDS: ONDANSETRON ODT 4 MG TAB.RAPDIS SL PRN (23:04)
[2020-02-15] MEDS: HYDROCODONE/APAP 10-325 MG TABLET PO PRN (23:04)
--- NOTE | 2020-02-16 06:25 | NUR ---
GPS: Pt.slept 7.15 last night. Assisted to the bathroom x1 due to unsteady gait. Medicated for pain last night with relief. Re-assured prn. Will continue to monitor.
[2020-02-16 07:30] VITALS: BP 131/47
[2020-02-16] MEDS: GABAPENTIN 100 MG CAPSULE PO SCH ×3 (09:00→17:00)
[2020-02-16] MEDS: chlorproMAZINE 25 MG TABLET PO SCH ×3 (09:00→17:00)
[2020-02-16] MEDS: ASPIRIN 81 MG TAB.CHEW PO SCH (09:00)
[2020-02-16] MEDS: CHOLECALCIFEROL 1,000 UNIT TABLET PO SCH (09:00)
[2020-02-16] MEDS: SPIRONOLACTONE 25 MG TABLET PO SCH (09:00)
[2020-02-16] MEDS: FLUVOXAMINE MALEATE 50 MG TABLET PO SCH ×3 (09:00→17:00)
[2020-02-16] MEDS: NIFEdipine XL 90 MG TABSR PO SCH (09:00)
[2020-02-16] MEDS: DONEPEZIL 10 MG TABLET PO SCH (09:00)
[2020-02-16 16:00] VITALS: BP 143/58
[2020-02-16 20:00] VITALS: BP 163/68
[2020-02-16] MEDS: DOCUSATE SODIUM 100 MG CAPSULE PO SCH (20:16)
[2020-02-16] MEDS: ATORVASTATIN 40 MG TABLET PO SCH (20:16)
[2020-02-17 07:52] VITALS: BP 164/61
[2020-02-17] MEDS: FLUVOXAMINE MALEATE 50 MG TABLET PO SCH ×3 (08:41→17:12)
[2020-02-17] MEDS: CHOLECALCIFEROL 1,000 UNIT TABLET PO SCH (08:41)
[2020-02-17] MEDS: GABAPENTIN 100 MG CAPSULE PO SCH ×3 (08:41→17:12)
[2020-02-17] MEDS: NIFEdipine XL 90 MG TABSR PO SCH (08:41)
[2020-02-17] MEDS: DONEPEZIL 10 MG TABLET PO SCH (08:42)
[2020-02-17] MEDS: ASPIRIN 81 MG TAB.CHEW PO SCH (08:42)
[2020-02-17] MEDS: chlorproMAZINE 25 MG TABLET PO SCH ×3 (08:42→17:12)
[2020-02-17] MEDS: SPIRONOLACTONE 25 MG TABLET PO SCH (08:42)
--- NOTE | 2020-02-17 11:31 | NUR ---
Received patient this AM in the bed. Easily arousable to name. Patient does c/o pain, but no yelling or thrashing in the bed noted. Sat patient up for breakfast, medication compliant without any difficulty. Tolerating food, but poor apatite for breakfast. Monitoring for safety and behavior escalation. Also monitoring for pain. Assist patient with ambulation and to bathroom. No acute distress noted at this time.
[2020-02-17] MEDS: HYDROCODONE/APAP 10-325 MG TABLET PO PRN (12:15)
[2020-02-17 16:00] VITALS: BP 122/49
[2020-02-17 20:00] VITALS: BP 130/55
[2020-02-17] MEDS: ATORVASTATIN 40 MG TABLET PO SCH (20:03)
[2020-02-17] MEDS: DOCUSATE SODIUM 100 MG CAPSULE PO SCH (20:03)
[2020-02-17] MEDS: HYDROXYZINE PAMOATE 25 MG CAPSULE PO PRN (20:03)
--- NOTE | 2020-02-18 04:24 | NUR ---
A/O X1,RESTING WITHEYES CLOSED,RESP.EVEN AND UNLABORED.PRN MED FOR ANXIETY WAS GIVEN EARLIER WHEN PT BECAME MORE ANXOUS AND RESTLESS WITH GOOD EFF.IN NO ACUTE DISTRESS.WILL CONTINUE TO MONITOR.
[2020-02-18 07:30] VITALS: BP 113/58
[2020-02-18] MEDS: chlorproMAZINE 25 MG TABLET PO SCH ×3 (08:12→17:50)
[2020-02-18] MEDS: GABAPENTIN 100 MG CAPSULE PO SCH ×3 (08:12→17:50)
[2020-02-18] MEDS: NIFEdipine XL 90 MG TABSR PO SCH (08:12)
[2020-02-18] MEDS: ASPIRIN 81 MG TAB.CHEW PO SCH (08:12)
[2020-02-18] MEDS: SPIRONOLACTONE 25 MG TABLET PO SCH (08:12)
[2020-02-18] MEDS: FLUVOXAMINE MALEATE 50 MG TABLET PO SCH ×3 (08:13→17:50)
[2020-02-18] MEDS: CHOLECALCIFEROL 1,000 UNIT TABLET PO SCH (08:13)
[2020-02-18] MEDS: DONEPEZIL 10 MG TABLET PO SCH (08:13)
--- NOTE | 2020-02-18 08:54 | NUR ---
Received patient in bed, up to bathroom with assist , then up to chair for breakfast. Patient still with c/o pain. Will medicate as needed. No outbursts or anger so far. No escalation in behavior. Monitoring pain and for safety. No acute distress noted. encouraging patient to use relaxation and to have meaningful conversation instead of wineing and acting childlike.
[2020-02-18] MEDS: HYDROCODONE/APAP 10-325 MG TABLET PO PRN ×2 (09:06→15:26)
[2020-02-18 16:00] VITALS: BP 99/33
[2020-02-18] MEDS: DOCUSATE SODIUM 100 MG CAPSULE PO SCH (20:03)
[2020-02-18] MEDS: ATORVASTATIN 40 MG TABLET PO SCH (20:03)
[2020-02-18 20:29] VITALS: BP 133/51
[2020-02-19 07:30] VITALS: BP 131/55
[2020-02-19] MEDS: chlorproMAZINE 25 MG TABLET PO SCH ×3 (08:32→16:30)
[2020-02-19] MEDS: SPIRONOLACTONE 25 MG TABLET PO SCH (08:32)
[2020-02-19] MEDS: FLUVOXAMINE MALEATE 50 MG TABLET PO SCH ×3 (08:32→16:11)
[2020-02-19] MEDS: CHOLECALCIFEROL 1,000 UNIT TABLET PO SCH (08:32)
[2020-02-19] MEDS: ASPIRIN 81 MG TAB.CHEW PO SCH (08:33)
[2020-02-19] MEDS: NIFEdipine XL 90 MG TABSR PO SCH (08:33)
[2020-02-19] MEDS: DONEPEZIL 10 MG TABLET PO SCH (08:33)
[2020-02-19] MEDS: GABAPENTIN 100 MG CAPSULE PO SCH ×3 (08:33→16:11)
--- NOTE | 2020-02-19 11:41 | NUR ---
GPS: Patient remains calms during conversation. Patient able to take her medicines , whole in chocolate pudding. No signs of behavioral problem noted. not in distress. will continue monitor
[2020-02-19 15:09] VITALS: BP 104/53
[2020-02-19] MEDS: ATORVASTATIN 40 MG TABLET PO SCH (20:04)
[2020-02-19] MEDS: DOCUSATE SODIUM 100 MG CAPSULE PO SCH (20:04)
[2020-02-19 20:31] VITALS: BP 138/55
[2020-02-20 07:30] VITALS: BP 127/61
--- NOTE | 2020-02-20 08:43 | NUR ---
Social Work Discharge Note: Patient will be discharged back home [address] [facility], [place] [address]; ([phone]). Patients David ([phone]) will pickler helper patient at 11AM. Patients David ([phone]) is aware and agreeable with discharge plan. Patient is aware and agreeable with discharge plans. Upon discharge, patient appear to be calm, cooperative and happy to be going home. Patient denies suicidal and homicidal ideation. Patient will follow up with (nurse outreach case [place]) [place]. [place] [address] [facility] [address], [place] [address]; ([phone]) on February 28 at 10:45AM and will follow up with psychiatrist (intake evaluation) at [facility], [facility], [address]; ([phone]) on April 11 at 2:20PM and will discuss smoking cessation and address substance abuse dependency. Patient will resume home health services from [facility] ([phone]) on 12/19/19. Patient was provided with mental health resources: [facility] ;([phone]), [facility]; ([phone]), [facility]; ([phone]), National Suicide Prevention Lifeline; ( ). Patient was provided with substance abuse referrals [facility] ) and was also referred to [facility] ([phone]). Patient presents with euthymic mood and congruent affect. Addendum: 02/20/20 at 0921 by MARCELA RAYGOZA Social Work Discharge Note: Patient will be discharged back home [address] [address]; ([phone]). Patients David ([phone]) will pickler helper patient at 11AM. Patients David ([phone]) is aware and agreeable with discharge plan. Patient is aware and agreeable with discharge plans. Upon discharge, patient appear to be calm, cooperative and happy to be going home. Patient denies suicidal and homicidal ideation. Patient will follow up with (nurse outreach case manager) Dr. Silva at [address] [facility] [address], [place] [address]; ([phone]) on February 28 at 10:45AM and will follow up with psychiatrist (intake evaluation) at [facility], [address]; ([phone]) on April 11 at 2:20PM and will discuss smoking cessation and address substance abuse dependency. Patient will resume home health services from [facility] ([phone]) on 12/23/19. Patient was provided with mental health resources: [facility] ;([phone]), [facility]; ([phone]), [facility]; ([phone]), National Suicide Prevention Lifeline; ( ). Patient was provided with substance abuse referrals [facility] ) and was also referred to [facility] ([phone]). Patient presents with euthymic mood and congruent affect.
[2020-02-20] MEDS: GABAPENTIN 100 MG CAPSULE PO SCH (08:54)
[2020-02-20] MEDS: FLUVOXAMINE MALEATE 50 MG TABLET PO SCH (08:55)
[2020-02-20] MEDS: DONEPEZIL 10 MG TABLET PO SCH (08:55)
[2020-02-20] MEDS: ASPIRIN 81 MG TAB.CHEW PO SCH (08:55)
[2020-02-20] MEDS: CHOLECALCIFEROL 1,000 UNIT TABLET PO SCH (08:55)
[2020-02-20] MEDS: chlorproMAZINE 25 MG TABLET PO SCH (09:24)
[2020-02-20 09:25] VITALS: BP 127/61
[2020-02-20] MEDS: SPIRONOLACTONE 25 MG TABLET PO SCH (09:25)
[2020-02-20] MEDS: NIFEdipine XL 90 MG TABSR PO SCH (09:25)
--- NOTE | 2020-02-20 11:41 | NUR ---
Discharge: Patient is AAO X2, able to express self at times. No acute distress or SOB noted. Vital signs stable for patient. No c/o complains during shift. Due medications administered as ordered and scheduled and tolerated. Discharge paper works done and signed by 2 nurses. All discharge instructions given to souse. Prescribed medications faxed to patient's preferred pharmacy. Informed spouse to f/up with PCP for further care. All belongings signed and returned to patient; patient's necklace also returned back to . All other needs attended. Family thanked for the care provided, patient assisted and wheeled to vehicle. All discharge papers works given to and patient left at 11:30am.
== END 2020-02-20 11:30 | disposition home health service (06) | DRG 885 ==
LOC: ER 02-02 00:05 → GPSOV3 02-02 01:02 → GPS 02-05 10:10
PROVIDERS: ADMIT Psychiatry & Neurology Psychiatry; ATTEND Nurse Practitioner Acute Care
DX: F33.3 Major depressive disorder, recurrent, severe with psychotic symptoms (principal); F02.81 Dementia in other diseases classified elsewhere, unspecified severity, with behavioral disturbance; N39.0 Urinary tract infection, site not specified; J98.11 Atelectasis; E44.1 Mild protein-calorie malnutrition; G89.29 Other chronic pain; G30.9 Alzheimer's disease, unspecified; E78.5 Hyperlipidemia, unspecified; I10 Essential (primary) hypertension; G89.4 Chronic pain syndrome; E88.09 Other disorders of plasma-protein metabolism, not elsewhere classified; F29 Unspecified psychosis not due to a substance or known physiological condition; F19.10 Other psychoactive substance abuse, uncomplicated; Z68.27 Body mass index [BMI] 27.0-27.9, adult
CPT/HCPCS: 36415; 71045; 83735; 84100; 84443; 85025; 87086; 93005; A4663; J1630; J2060; J2358; J3230; Q0161; Q0162